=== PATIENT | male | born 1950 | race Caucasian/White ===

== ENCOUNTER 2022-08-02 11:11 | Day surgery (SDC) | payer MEDICARE ==
[~2022-08-02] VITALS: Ht 172.7 cm; Wt 107.4 kg
[2022-08-02] VITALS (7 sets, daily range): BP systolic 114–161; BP diastolic 70–90
[~2022-08-02 11:11] MED LIST: AMIT-1 PO; BUPR-72 PO; CHOL200013 PO; CYCL-1 PO; DOXY-224 PO; FLUT16SP11 BOTHNARES; FURO-150 PO; HYDR-3972 PO; LACT1CAP65 PO; LATA2.5D14 EACHEYE; MULT-1085 PO; PRAV40TA3 PO; famotidine 20mg tablet PO ONE; ringers solution, lacted 1,000 ML IV SCH
--- NOTE | 2022-08-02 11:25 | NUR ---
PREPARED PT FOR SURGERY. SPOKE WITH DR RICHEY'S OFFICE, PER DR RICHEY, PT DOES NOT NEED AN ADDITIONAL RAPID COVID TEST PRIOR TO SURGERY. IV STARTED, DR RICHEY AT BEDSIDE, EAR MARKED
[2022-08-02] MEDS ORDERED: BUPIVAcaine 0.25% w/Epi /PF 30ml vial ONE (12:38)
[2022-08-02] MEDS ORDERED: LIDOCAINE 1%/EPI 1:100,000 inj. 10 ML multi-dose vial ONE (12:38)
[2022-08-02] MEDS ORDERED: epiNEPHrine 1 mg/ml inj ONE (12:38)
[2022-08-02] MEDS ORDERED: mupirocin 2% ointment 22GM ONE (13:00)
[2022-08-02] MEDS ORDERED: sevoflurane 250ml liquid IH ONE (13:02)
[2022-08-02] MEDS ORDERED: fentaNYL/PF 50MCG/1 ML 2ML syringe ONE (13:09)
[2022-08-02] MEDS ORDERED: midazolam 1 mg/ML 2ml injection ONE (13:21)
[2022-08-02] MEDS ORDERED: LIDOcaine 2% (20mg/ml) 5ml vial ONE (13:38)
[2022-08-02] MEDS ORDERED: propofol inj 20 ML IV ONE (13:38)
[2022-08-02] MEDS ORDERED: dexamethasone sod phosphate 4mg/ml inj. ONE (13:38)
[2022-08-02] MEDS ORDERED: ondansetron/PF 4mg/2ml inj ONE (13:38)
--- NOTE | 2022-08-02 13:55 | NUR ---
Received from OR via [facility] , accompanied by Anesthesiologist DR MIRANDA and report given by Anesthesiolgist. PT SLEEPY BUT AROUSABLE, DENIES PAIN AND NAUSEA WHEN ASKED. PT HAS COTTON SWAB TO RIGHT EAR, CDI, NO DRAINGE NOTED.
[2022-08-02] MEDS ORDERED: ringers solution, lacted 1,000 ML IV SCH (14:00)
[2022-08-02] MEDS ORDERED: labetalol 20mg/4ml (5mg/ml) syringe IV PRN (14:00)
[2022-08-02] MEDS ORDERED: acetaminophen 1,000mg/100ml IV 100 ML IV PRN (14:00)
[2022-08-02] MEDS ORDERED: morphine 2 MG/ML inj. syringe IV PRN (14:00)
[2022-08-02] MEDS ORDERED: meperidine/PF 25mg/ml syringe IV PRN ×3 (14:00)
[2022-08-02] MEDS ORDERED: morphine 4 MG/ML inj SYRINge IV PRN (14:00)
[2022-08-02] MEDS ORDERED: hydrALAZINE 20mg/ml inj. IV PRN (14:00)
[2022-08-02] MEDS ORDERED: ondansetron/PF 4mg/2ml inj IV PRN (14:00)
[2022-08-02] MEDS ORDERED: proCHLORperazine 10 MG/2 ml inj IV PRN (14:00)
--- NOTE | 2022-08-02 15:05 | NUR ---
PT DC'D TO HOME SAFELY VIA W/C. INSTUCTIONS REVIEWED W/ PT AND PT STATES UNDERSTANDING. PT WAS ABLE TO VOID QS X 1 PRIOR TO DC TO HOME. DENIES PAIN AND NAUSEA AND STATES READINESS FOR DC TO HOME. PT TOLERATE [place]. IV DC'D INTACT. NO BELONGINGS TO TAKE HOME OTHER THAN CLOTHES AND SHOES IN WHICH PT IS WEARING.
== END 2022-08-02 15:05 | disposition home or self-care (01) ==
LOC: PAS 11:11
PROVIDERS: ATTEND Otolaryngology
DX: D49.2 Neoplasm of unspecified behavior of bone, soft tissue, and skin (principal); F41.9 Anxiety disorder, unspecified; F17.210 Nicotine dependence, cigarettes, uncomplicated; Z98.890 Other specified postprocedural states; M19.90 Unspecified osteoarthritis, unspecified site; Z79.899 Other long term (current) drug therapy; Z20.822 Contact with and (suspected) exposure to COVID-19; Z85.828 Personal history of other malignant neoplasm of skin
CPT/HCPCS: 11442; 69310; 82948; 87811; 93005; J1100; J2250; J2405; J2704; J3010; J3490; J7030; J7120; Z7506; Z7512; 88305; A4618; A6449; A7000; J0171; S0020